=== PATIENT | female | born 1965 | race Caucasian/White ===

== ENCOUNTER 2016-04-08 16:08 | Emergency (ER) | payer OTHER ==
[~2016-04-08] VITALS: Ht 154.9 cm; Wt 72.6 kg
[~2016-04-08 16:08] MED LIST: ANUSOL HC30 GM TOP; MS CONTIN30 MG PO; TRAMADOL50 MG PO
--- NOTE | 2016-04-08 16:46 | ED GI/GU/ABDOMINAL COMPLAINT ---
History of Present Illness General Chief Complaint: Abdominal Pain/Flank Pain Stated Complaint: ABD PAIN WITH LOW BACK PAIN Source: patient Exam Limitations: no limitations Vital Signs & Intake/Output Vital Signs & Intake/Output Vital Signs Date Time Temp Pulse Resp B/P Pulse O2 O2 Flow FiO2 Ox Delivery Rate 04/08 1840 96.5 66 18 102/72 04/08 1718 97.2 64 18 100/78 04/08 1612 96.5 79 20 111/71 96 Room Air Allergies Coded Allergies: NO KNOWN ALLERGIES (04/08/16) Triage Note: TRIAGE: PT SENT TO ER BY [facility]. PT STATES "I'VE BEEN HAVING THE RUNS" SINCE LAST MONDAY, "EVERY TIME I EAT I HAVE TO GO TO THE BATHROOM". REPORTS STOMACH BLOATED. -N/V. LNBM ?LAST WEEK. DENIES URINARY S/S. ALSO COMPLAINS OF "MY SINUSES AND I HAVE A CROUP COUGH". Triage Nurses Notes Reviewed? yes ? N Is pt currently ? No HPI: This patient is a 51 year old female who presented to the emergency department today for evaluation of diarrhea and lower abdominal pain since Monday. The patient reported that she has had diarrhea every time she eats or drinks anything all week. No nausea or vomiting.She did reported generalized lower abdominal pain that gets up to a 6 out of 10, cramping, and nonradiating. Intermittent in nature. No palliative factors. She reported tactile fevers and chills last week, but not currently. No recent antibiotic use. Chronic back pain reported per the patient. She was seen in a walk in clinic today who sent her to the emergency department. Reported some shortness of breath she attributes to smoking. No chest pain. Dry cough. Sinus pressure. (CIERRA ROMERO,SOUMYA) Reconcile Medications Buprenorphine HCl/Naloxone HCl (Suboxone 8 MG-2 MG Sl Film) 8 MG-2 MG FILM 1 STR SL TID CHRONIC PAIN (Reported) Clonazepam 2 MG TABLET 1 TAB PO TID PRN ANXIETY (Reported) Dicyclomine Hydrochloride (Bentyl) 10 MG CAPSULE 1 CAP PO TID PRN ABDOMINAL SPASMS Naproxen Sodium (Aleve) 220 MG CAPSULE 4 TAB PO PRN PAIN (Reported) Quetiapine Fumarate 100 MG TABLET 1 TAB PO QPM SLEEP (Reported) Triamterene/Hydrochlorothiazid (Triamterene-Hctz 75-50 MG Tab) 75 MG-50 MG TABLET 1 TAB PO DAILY BP (Reported) Venlafaxine HCl (Venlafaxine HCl ER) 150 MG CAP.ER.24H 1 CAP PO DAILY MENTAL HEALTH (Reported) (LORENA ROGERS,KELVIN) Past History Travel History Traveled to [place] past 21 day No Medical History Any Pertinent Medical History? 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 No (SOUMYA NORTON PA-C) Review of Systems Review of Systems Constitutional: Reports: see HPI. EENTM: Reports: see HPI. Respiratory: Reports: see HPI. Cardiovascular: Reports: no symptoms. GI: Reports: see HPI. Genitourinary: Reports: no symptoms. Musculoskeletal: Reports: no symptoms. Skin: Reports: no symptoms. Neurological/Psychological: Reports: no symptoms. All Other Systems: Reviewed and Negative (SOUMYA NORTON PA-C) Physical Exam Physical Exam Gastrointestinal: normal bowel sounds, soft, no organomegaly, no rebound or guarding. no masses. no mcburny's point tenderness. negative rovsing sign. negative psoas sign. negative nunes's sign. nondistended. tender in the LLQ Comments: Well-developed well-nourished person in no acute distress HEENT: Normal EENT exam, head normocephalic, moist mucous membranes Pupils equally round and reactive to light. Neck: Supple, no lymphadenopathy Back: Normal gait Cardiovascular: Regular rate and rhythms with no murmurs, rubs, or gallops Respiratory: Chest nontender. No respiratory distress. Scattered rhonchi in all lung delgado. no wheezes or rales Extremity: Normal and equal pulses Neuro: Alert oriented x3, cranial nerves II through XII grossly intact. Skin: No appreciable rash on exposed skin, skin is warm and dry. Psych: Mood and affect is normal Core Measures ACS in differential dx? No Severe Sepsis Present: No Septic Shock Present: No (SOUMYA NORTON PA-C) Progress Differential Diagnosis: AAA, AMI, appendicitis, biliary colic, bowel obstruction , colon cancer, cholecystitis, diverticulitis, ectopic , endometritis, gastritis, hepatitis, ischemic bowel, inflamm bowel dis, intrauterine , kidney stone, ovarian cyst, ovarian torsion, pancreatitis, PID/cervicitis, PUD/ GERD, perforated viscous, threatened AB, UTI/pyelo Plan of Care: Orders Procedure Date/time Status RAPID VIRAL INFLUENZA A 04/08 1643 Complete CULTURE,STOOL 04/08 1642 Active C.DIFFICILE 04/08 1642 Active URINE 04/08 1642 Complete URINALYSIS 04/08 1642 Complete LIPASE 04/08 1642 Complete DIRECT BILIRUBIN 04/08 1642 Complete COMPREHENSIVE METABOLIC PANEL 04/08 1642 Complete CBC WITHOUT DIFFERENTIAL 04/08 1642 Complete AMYLASE 04/08 1642 Complete Current Medications Sig/Chayito Start time Last Medication Dose Stop Time Status Admin Ketorolac 30 MG ONCE ONE 04/08 1899 UNVr Tromethamine 04/08 1900 (Toradol) Laboratory Tests 04/08/16 171: Anion Gap 6, Estimated GFR > 60, BUN/Creatinine Ratio 17.1, Glucose 81, Calcium 9.0, Total Bilirubin 0.5, Direct Bilirubin 0.4, AST 18, ALT 24, Alkaline Phosphatase 65, Total Protein 6.5, Albumin 4.0, Globulin 2.5, Albumin/Globulin Ratio 1.6, Amylase 38, Lipase 56, CBC w Diff NO MAN DIFF REQ, RBC 4.74, MCV 88.5 , MCH 30.4, RDW 13.7, MPV 8.0, Gran % 68.3, Lymphocytes % 24.2, Monocytes % 3.8, Eosinophils % 3.3, Basophils % 0.4, Absolute Granulocytes 5.5, Absolute Lymphocytes 1.9, Absolute Monocytes 0.3, Absolute Eosinophils 0.3, Absolute Basophils 0, PUBS MCHC 34.3 04/08/16 170: Urine Color YEL, Urine Clarity CLEAR, Urine pH 7.0, Ur Specific [place] 1.020, Urine Protein NEG, Urine Ketones NEG, Urine Nitrite NEG, Urine Bilirubin NEG, Urine Urobilinogen 0.2, Ur Leukocyte Esterase NEG, Ur Microscopic EXAM NOT REQUIRED, Urine Hemoglobin NEG, Urine Glucose NEG, Urine Test NEGATIVE Microbiology 04/08 1642 STOOL: Clostridium difficile Toxin A & B - ORD 04/08 1642 STOOL: Stool Culture - ORD Diagnostic Imaging: Viewed by Me: Radiology Read. Discussed w/RAD: Radiology Read. CXR Impression: PATIENT: ZACHARY MAYS PRESENT AGE: 51 PATIENT ACCOUNT NO: [id number] : 67 LOCATION: [facility] ORDERING PHYSICIAN: SOUMYA NORTON PA-C SERVICE DATE: 04/08/16 EXAM TYPE: RAD - XRY-CHEST XRAY, PA AND LATERAL EXAMINATION: XR CHEST CLINICAL INFORMATION: Shortness of breath COMPARISON: None TECHNIQUE: 2 views of the chest were obtained. FINDINGS: Cardia mediastinal silhouette is within normal limits. Lungs are clear. Bony thorax is intact. IMPRESSION: No acute pulmonary disease. 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 <Electronically signed in Other Vendor System> SIGNED BY: CONNER MILLER MD 04/08/161810 Initial ED EKG: none (CIERRA ROMERO,SOUMYA) Departure Departure Disposition: HOME OR SELF CARE Condition: Stable Clinical Impression Primary Impression: Viral syndrome Referrals: JAN ROGERS,HARMAN Nair (PCP/Family) Additional Instructions: TAKE MEDICATION PRESCRIBED. REST AND STAY HYDRATED. FOLLOW-UP WITH YOUR PRIMARY CARE PHYSICIAN. RETURN FOR ANY WORSENING SYMPTOMS OR CONCERNS. Departure Forms: Customer Survey General Discharge Information Prescriptions: Current Visit Scripts Dicyclomine Hydrochloride (Bentyl) 1 CAP PO TID PRN ABDOMINAL SPASMS #15 CAP (SOUMYA NORTON PA-C) PA/HOUSE SITTER Co-Sign Statement Statement: ED Attending supervision documentation- [] I saw and evaluated the patient. I have also reviewed all the pertinent lab results and diagnostic results. I agree with the findings and the plan of care as documented in the PA's/HOUSE SITTER's documentation. [X] I have reviewed the ED Record and agree with the PA's/HOUSE SITTER's documentation. [] Additions or exceptions (if any) to the PAs/HOUSE SITTER's note and plan are summarized below: [] (LORENA ROGERS,KELVIN)
[2016-04-08] MEDS ORDERED: CLONAZEPAM2 M2 PO (16:52)
[2016-04-08] MEDS ORDERED: QUETIAPINE FUM100 M1 PO (16:52)
[2016-04-08] MEDS ORDERED: TRIAMTERENE-HC1 EAC2 PO (16:53)
[2016-04-08] MEDS ORDERED: VENLAFAXINE HC150 MG PO (16:53)
[2016-04-08] MEDS ORDERED: SUBOXONE 8 MG-1 EACH SL (16:53)
[2016-04-08] MEDS ORDERED: ALEVE220 M1 PO (16:54)
[2016-04-08 17:25] LABS: ABSOLUTE BASOPHIL COUNT 0 /CUMM (0.0-0.2); ABSOLUTE EOSINOPHIL COUNT 0.3 /CUMM (0.0-0.7); ABSOLUTE GRANULOCYTE CT 5.5 /CUMM (1.4-6.5); ABSOLUTE LYMPH COUNT 1.9 /CUMM (1.2-3.4); ABSOLUTE MONOCYTE COUNT 0.3 /CUMM (0.10-0.60); BASOPHIL % 0.4 % (0.0-2.0); EOSINOPHIL % 3.3 % (0-5); GRANULOCYTE % 68.3 % (42.2-75.2); MEAN CORPUSCULAR HGB 30.4 PG (27.0-31.0); MEAN CORPUSCULAR HGB CONC 34.3 G/DL (33.0-37.0); MEAN CORPUSCULAR VOLUME 88.5 FL (81.0-99.0); PLATELET COUNT 226 /CUMM (130-400); RBC DISTRIBUTION WIDTH 13.7 % (11.5-14.5); RED BLOOD CELL CT 4.74 /CUMM (4.20-5.40)
--- NOTE | 2016-04-08 18:11 | RADIOLOGY REPORT ---
EXAMINATION: XR CHEST CLINICAL INFORMATION: Shortness of breath COMPARISON: None TECHNIQUE: 2 views of the chest were obtained. FINDINGS: Cardia mediastinal silhouette is within normal limits. Lungs are clear. Bony thorax is intact. IMPRESSION: No acute pulmonary disease.
[2016-04-08 18:40] VITALS: BP 102/72
[2016-04-08] MEDS ORDERED: BENTYL10 M1 PO (18:54)
== END 2016-04-08 19:08 ==
LOC: ERH 16:08
PROVIDERS: Physician Assistant
DX: B34.9 Viral infection, unspecified (principal); M54.5 Low back pain
CPT/HCPCS: 1263; 81003; 81025; 87045; 87804; 87804-59; 96374; J1885

== ENCOUNTER 2016-09-04 02:33 | Emergency (ER) | payer OTHER ==
[~2016-09-04] VITALS: Ht 152.4 cm; Wt 65.8 kg
[~2016-09-04 02:33] MED LIST changes: +ALEVE220 M1 PO; +BENTYL10 M1 PO; +CLONAZEPAM2 M2 PO; +QUETIAPINE FUM100 M1 PO; +SUBOXONE 8 MG-1 EACH SL; +TRIAMTERENE-HC1 EAC2 PO; +VENLAFAXINE HC150 MG PO
--- NOTE | 2016-09-04 04:02 | ED HAND/WRIST INJURY COMPLAINT ---
History of Present Illness General Chief Complaint: Laceration Procedure Stated Complaint: LAC TO RIGHT RING FINGER Source: patient, family, old records Exam Limitations: no limitations Vital Signs & Intake/Output Vital Signs & Intake/Output Vital Signs Date Time Temp Pulse Resp B/P B/P Pulse O2 O2 Flow FiO2 Mean Ox Delivery Rate 09/04 0407 97.4 73 18 108/71 96 Room Air 09/04 0240 97.2 94 16 123/75 97 Room Air Allergies Coded Allergies: NO KNOWN ALLERGIES (04/08/16) Reconcile Medications Buprenorphine HCl/Naloxone HCl (Suboxone 8 MG-2 MG Sl Film) 8 MG-2 MG FILM 1 STR SL TID CHRONIC PAIN (Reported) Clonazepam 2 MG TABLET 1 TAB PO TID PRN ANXIETY (Reported) Dicyclomine Hydrochloride (Bentyl) 10 MG CAPSULE 1 CAP PO TID PRN ABDOMINAL SPASMS Naproxen Sodium (Aleve) 220 MG CAPSULE 4 TAB PO PRN PAIN (Reported) Quetiapine Fumarate 100 MG TABLET 1 TAB PO QPM SLEEP (Reported) Triamterene/Hydrochlorothiazid (Triamterene-Hctz 75-50 MG Tab) 75 MG-50 MG TABLET 1 TAB PO DAILY BP (Reported) Venlafaxine HCl (Venlafaxine HCl ER) 150 MG CAP.ER.24H 1 CAP PO DAILY MENTAL HEALTH (Reported) Triage Note: PT TO ED WITH LAC TO FOURTH FINGER OF RIGHT HAND. PT STATES GLASS BROKE WHILE SHE WAS WASHING DISHES. BLEEDING CONTROLLED UPON ARRIVAL. Triage Nurses Notes Reviewed? yes Occurred: just prior to arrival Duration: minute(s):, constant, continues in ED Timing: single episode today Injury Environment: home Severity: mild Pain/Injury Location: Right: 2nd finger. Context: incision, laceration Method of Injury: incised, laceration No Modifying Factors: none Associated Symptoms: GCS 15 since LMP (ages 10-50): unknown : No Patient currently breastfeeds: No HPI: Prior to admission patient sustaining laceration to volar base of right ring finger. She cut a piece of the skin off. She is left-hand dominant. She denies other injury fever chills nausea vomiting diarrhea abdominal pain chest pain shortness breath headache dysuria rash. Past History Travel History Traveled to [place] past 21 day No Medical History Any Pertinent Medical History? 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 No Review of Systems Review of Systems Constitutional: Reports: no symptoms. EENTM: Reports: no symptoms. Respiratory: Reports: no symptoms. Cardiovascular: Reports: no symptoms. GI: Reports: no symptoms. Genitourinary: Reports: no symptoms. Musculoskeletal: Reports: no symptoms. Skin: Reports: see HPI. Neurological/Psychological: Reports: no symptoms. Hematologic/Endocrine: Reports: no symptoms. Immunologic/Allergic: Reports: no symptoms. All Other Systems: Reviewed and Negative Physical Exam Physical Exam General Appearance: well developed/nourished, mild distress Head: atraumatic Eyes: Bilateral: PERRL, EOMI. Ears, Nose, Throat: normal pharynx, normal ENT inspection, hearing grossly normal Neck: normal inspection, supple Cardiovascular/Respiratory: normal breath sounds, regular rate/rhythm Back: normal inspection Shoulder Left: normal range of motion, normal inspection Shoulder Right: normal range of motion, normal inspection Elbow Left: normal range of motion, normal inspection Elbow Right: normal range of motion, normal inspection Forearm Left: normal range of motion, normal inspection Forearm Right: normal range of motion, normal inspection Wrist Left: normal range of motion, normal inspection Wrist Right: normal range of motion, normal inspection Hand Left: normal inspection, normal range of motion Hand Right: normal range of motion, evidence of injury, 4th finger (2.5 cm lac @ base) Reflexes: 2+: bicep (R), bicep (L), tricep (R), tricep (L). Neurologic/Tendon: normal sensation, normal motor functions, normal tendon functions Skin: normal color, warm/dry Lymphatic: no anterior cervical tennille Progress Differential Diagnosis: abscess, cellulitis Plan of Care: Wound repair Departure Departure Time of Disposition: 400 Disposition: HOME OR SELF CARE Condition: Stable Clinical Impression Primary Impression: Laceration of ring finger Qualifiers: Encounter type: initial encounter Damage to nail status: without damage Foreign body presence: without foreign body Laterality: right Qualified Code: S61.214A - Laceration without foreign body of right ring finger without damage to nail, initial encounter Referrals: JAN ROGERS,HARMAN Nair (PCP/Family) Additional Instructions: Suture removal 10 days. Wear splint to protect wound and sutures. Departure Forms: Customer Survey General Discharge Information RELEASE- WORK Procedures Laceration/Wound Repair Laceration/Wound Repair: Wound Location: upper extremity Wound's Depth, Shape: contused tissue, irregular Wound Length (cm): 2.5 Wound Explored: clean, no foreign body removed Irrigated w/ Saline (ccs): 250 Betadine Prep? No Anesthesia: 1% lidocaine Volume Anesthetic (ccs): 3 Wound Repaired With: sutures Suture Size/Type: 5:0, nylon Number of Sutures: 6 Layer Closure? No Sterile Dressing Applied: Yes Splint Applied? Yes By Who? by nurse Type of Splint Applied: metal finger Sling Applied? No Tetanus Status: up to date
[2016-09-04 04:07] VITALS: BP 108/71
== END 2016-09-04 04:25 ==
LOC: ERH 02:33
DX: S61.214A Laceration without foreign body of right ring finger without damage to nail, initial encounter (principal); W25.XXXA Contact with sharp glass, initial encounter; Y92.9 Unspecified place or not applicable; Y93.G1 Activity, food preparation and clean up